=== PATIENT | female | born 1990 | race Two or more races ===

== ENCOUNTER 2021-02-02 07:33 | Day surgery (SDC) | payer OTHER | END 2021-02-02 19:20 | disposition home or self-care (01) | LOC: CIR.AMB 07:33 → EDSEX 10:30 → CIR.AMB 10:30 | PROVIDERS: ATTEND Colon & Rectal Surgery | DX: K60.1 Chronic anal fissure (principal); K64.8 Other hemorrhoids; Z20.822 Contact with and (suspected) exposure to COVID-19 ==